=== PATIENT | female | born 1985 | race Caucasian/White ===

== ENCOUNTER 2019-02-24 20:50 | Emergency (ER) | payer BC, OTHER ==
[2019-02-24 21:19] LABS: Bilirubin Small (Negative); Blood, Urine Large (Negative); Clarity Turbid (Clear); Glucose, Urine (Dipstick) Negative (Negative); Leukocyte Trace (Negative); Nitrite Negative (Negative); Protein, Urine (Dipstick) 100 mg/dL (Neg-Trace); Specific Gravity, Urine 1.025 (1.005-1.030)
[2019-02-24 21:25] LABS: Pregnancy Test - Urine (BHCG) Negative (Negative); Pregu Control Background? CLEAR/WHITE (CLR/WHITE); Pregu Control Bar Appear? YES (CONTROL BAR); Specific Gravity 1.025 (1.002-1.036)
[2019-02-24] MEDS ORDERED: Ketorolac Tromethamine 30 MG/ML VIAL ONE ×2 (21:25→23:38)
[2019-02-24] MEDS ORDERED: Sodium Chloride 0.9% 1,000 ML ONE (21:25)
[2019-02-24] MEDS ORDERED: Ondansetron PF 4 MG/2 ML Vial ONE (21:32)
[2019-02-24 21:36] LABS: RBC/HPF GREATER THAN 50-TNTC HPF (0-3)
[2019-02-24 21:37] LABS: Bacteria/HPF 3+ HPF (None Seen); Renal Epithelial 0-3 HPF (0-3); WBC/HPF 21-50 HPF (0-3); Yeast-All Forms Rare HPF (None Seen)
--- NOTE | 2019-02-24 21:40 | CT ---
CT of abdomen and pelvis: 02/24/2019 COMPARISON: None HISTORY: Right flank pain TECHNIQUE: Axial CT imaging at 5 mm intervals from lung bases through pubic symphysis without contras t. Coronal reformatted imaging obtained. FINDINGS: Lack of contrast media limits assessment of the viscera, bowel, vascular structures, and fo r lymphadenopathy. The visualized lung bases are unremarkable. No free intraperitoneal air or fluid. IUD present within the uterus. The liver, gallbladder, spleen, pancreas, and adrenal glands are unremarkable. Left kidney is unremar kable. There is right-sided hydronephrosis and hydroureter. There is an obstructing stone in the distal righ t ureter just proximal to the region of the right ureterovesicular junction measuring approximately 6 mm. Limited assessment of the bowel appears grossly unremarkable. No acute osseous abnormality. IMPRESSION: Obstructive uropathy on the right with prominent right-sided hydronephrosis and hydroureter secondary to a distal right obstructing ureteral calculus measuring approximately 6 mm.
[2019-02-24] MEDS ORDERED: cefTRIAXone\\ROCEPHIN 1 GM VIAL ONE (21:46)
[2019-02-24 21:48] LABS: #Basophils 0.1 thou/uL (0.0-0.2); #Eosinphils 0.4 thou/uL (0.0-0.7); #Lymphocytes 2.9 thou/uL (1.20-3.40); #Monocytes 0.7 thou/uL (0.11-0.59); #Neutrophils 4.9 thou/uL (1.40-6.50); %Basophils 1.1 % (0.0-1.0); %Eosinophils 4.9 % (0.0-10.0); %Lymphocytes 32.2 % (21.0-51.0); %Neutrophils 53.8 % (42.0-75.0); Hemoglobin 14.4 g/dL (12.0-16.0); Mean Corpuscular HGB CONC 34.2 g/dL (32.0-36.0); Mean Corpuscular Hemoglobin 29.3 pg (27.0-31.0); Mean Corpuscular Volume 85.8 fL (78.0-98.0); Mean Platelet Volume 7.9 fL (7.4-10.4); Platelet Count 215 thou/uL (130-400); RBC Distribution Width 11.2 % (11.5-14.5)
[2019-02-24] MEDS ORDERED: Sodium Chloride 0.9% 100 ML ONE (21:49)
[2019-02-24 21:56] LABS: Anion Gap 16 mmol/L (10-20); BUN (Urea Nitrogen) 10 mg/dL (7.0-18.7); Calc. Creatinine Clearance 0 mL/min (70-130); Calcium 9.7 mg/dL (7.8-10.44); Carbon Dioxide 22 mmol/L (22-29); Chloride 105 mmol/L (98-107); Estimated GFR-MDRD 83; Glucose 103 mg/dL (70-105); Potassium 4.4 mmol/L (3.5-5.1); Sodium 139 mmol/L (136-145)
[2019-02-24] MEDS ORDERED: Morphine 4 MG/ML VIAL ONE ×2 (22:01→23:19)
[2019-02-24 22:09] LABS: Bilirubin Small (Negative); Blood, Urine Large (Negative); Clarity Turbid (Clear); Glucose, Urine (Dipstick) Negative (Negative); Leukocyte Negative (Negative); Nitrite Negative (Negative); Protein, Urine (Dipstick) 100 mg/dL (Neg-Trace); Specific Gravity, Urine 1.025 (1.005-1.030)
[2019-02-24 22:36] LABS: Bacteria/HPF 4+ HPF (None Seen); RBC/HPF GREATER THAN 50-TNTC HPF (0-3); Renal Epithelial 0-3 HPF (0-3); WBC/HPF 21-50 HPF (0-3)
[2019-02-24] MEDS ORDERED: Tamsulosin HCl 0.4 MG CAP ONE (23:15)
== END 2019-02-24 23:45 | disposition home or self-care (01) ==
LOC: MADERS 20:50
DX: N13.2 Hydronephrosis with renal and ureteral calculous obstruction (principal); G43.909 Migraine, unspecified, not intractable, without status migrainosus; F41.9 Anxiety disorder, unspecified; Z79.01 Long term (current) use of anticoagulants; Z79.899 Other long term (current) drug therapy
CPT/HCPCS: 36415; 51701; 74176; 80048; 81015; 81025; 85025; 87086; 96365; 96375; 96376; A4353; J0696; J1885; J2270; J2405; J3490; J7050

== ENCOUNTER 2019-12-04 20:15 | Emergency (ER) | payer OTHER ==
[~2019-12-04 20:15] MED LIST: Sterile Water Irrigation 1,000 ML BOT ONE
[2019-12-04] MEDS ORDERED: SUMAtriptan Succinate 6 MG/0.5 ML VIAL ONE (20:28)
[2019-12-04] MEDS ORDERED: Acetaminophen 500 MG TAB ONE (20:28)
[2019-12-04] MEDS ORDERED: Ibuprofen 800 MG TAB ONE (20:28)
[2019-12-04] MEDS ORDERED: Adacel (T-DAP) 0.5 ML SYRINGE ONE (20:36)
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
== END 2019-12-04 21:26 | disposition home or self-care (01) ==
LOC: MADERS 20:15
DX: S10.90XA Unspecified superficial injury of unspecified part of neck, initial encounter (principal); S80.922A Unspecified superficial injury of left lower leg, initial encounter; S80.921A Unspecified superficial injury of right lower leg, initial encounter; G43.909 Migraine, unspecified, not intractable, without status migrainosus; Z87.442 Personal history of urinary calculi; Z79.899 Other long term (current) drug therapy; X94.0XXA Assault by shotgun, initial encounter
CPT/HCPCS: 70360; 71046; 90471; 90715; 96372; A4217; J3030